=== PATIENT | male | born 1965 | race Two or more races ===

== ENCOUNTER 2024-10-15 05:35 | Day surgery (SDC) | payer MEDICAID, SELFPAY ==
--- NOTE | 2024-10-12 06:14 | EKG_ITS ---
[facility] Test Date: 2024-10-12 Pat Name: HOLLIE CHACON Department: Room: - Gender: Male Vascular Technician: YISSEL : 1965 Requested By: Álvaro Warren Order Number: [id number] Reading MD: Álvaro Warren Measurements Intervals [place] Rate: 60 P: 55 MA: 197 QRS: 14 QRSD: 130 T: 12 QT: 395 QTc: 396 Interpretive Statements SINUS RHYTHM MODERATE INTRAVENTRICULAR CONDUCTION DELAY [110+ ms QRS DURATION] No previous ECG available for comparison /store/S0/[id number]/ecg/[id number].pdf
[2024-10-12 09:46] VITALS: BMI 31.6
[2024-10-12 10:25] LABS: Collection Type, Urine Clean Catch
[2024-10-12 10:39] LABS: Basophils % (Auto) 0 % (0-2.5); Eosinophils # (Auto) 0.2 Thou/mm3 (0.0-0.5); Eosinophils % (Auto) 2 % (0-10); Hematocrit 43.4 % (41.0-53.0); Hemoglobin 15.5 g/dL (13.5-16.0); Immature Granulocytes % (Auto) 0 % (0-0); Immature Granulocytes Auto 0.01 Thou/mm3 (0.00-0.00); Lymphocytes # (Auto) 2.8 Thou/mm3 (1.0-4.8); Lymphocytes % (Auto) 43 % (10-50); Mean Corpuscular HGB Conc 35.7 g/dl (31.0-37.0); Mean Corpuscular Hemoglobin 30.7 pg (25.0-35.0); Mean Corpuscular Volume 86 fL (80-100); Monocytes # (Auto) 0.4 Thou/mm3 (0.0-0.8); Monocytes % (Auto) 6 % (0-12); Neutrophils # (Auto) 3.2 Thou/mm3 (1.8-7.7); Neutrophils % (Auto) 49 % (37-80); Nucleated Red Blood Cell % 0 /100 WBC (0); Platelet Count 243 Thou/mm3 (140-440); RDW Standard Deviation 40.1 fL (35.1-43.9); Red Blood Count 5.05 Miln/mm3 (4.50-5.90); White Blood Count 6.5 Thou/mm3 (3.8-10.6)
[2024-10-12 10:40] LABS: Bilirubin,Urine Negative (Negative); Blood,Urine Negative (Negative); Clarity,Urine Clear (Clear/Hazy); Color,Urine Yellow (Lt Yel-Yel); Glucose, Urine Negative (Negative); Ketones,Urine Negative (Negative); Leukocyte Esterase,Urine Negative (Negative); Nitrite,Urine Negative (Negative); Protein,Urine Negative (Neg - Trace); RBC,Urine 2 /hpf (0-3); Specific Gravity,Urine 1.027 (1.001-1.035); Squamous Epithelial Cell,Urine < 1 /hpf (0-5); Urobilinogen,Urine Negative mg/dL (0.0-1.0); WBC,Urine 2 /hpf (0-5)
[2024-10-12 10:53] LABS: INR 1.1 (0.9-1.3); Partial Thromboplastin Time 25.6 Seconds (22.0-36.0); Prothrombin Time 12.1 Seconds (9.0-12.2)
[2024-10-12 10:56] LABS: Alanine Aminotransferase 49 U/L (10-49); Albumin, Serum 4.4 gm/dL (3.5-5.0); Albumin/Globulin Ratio 1.5 (1.2-2.2); Alkaline Phosphatase 40 U/L (46-116); Anion Gap 8 (7-16); Aspartate Amino Transferase 36 U/L (0-34); BUN/Creatinine Ratio 19 Ratio (12-20); Bilirubin,Total 0.6 mg/dL (0.3-1.2); Blood Urea Nitrogen 21 mg/dL (9-23); Calcium 9.5 mg/dL (8.3-10.6); Calcium (Corrected) 9.5 mg/dL (8.5-10.1); Carbon Dioxide 27.8 mMol/L (20.0-31.0); Chloride 104 mMol/L (98-107); Creatinine (Component) 1.1 mg/dL (0.6-1.3); Estimated Creatinine Clearance 75.5 mL/min (>60); Glucose 85 mg/dL (74-106); Osmolality,Calculated 281 (275-295); Potassium 4.4 mMol/L (3.4-5.1); Sodium 140 mMol/L (136-145); Total Protein 7.4 gm/dL (5.7-8.2); eGFR > 60 See Note
--- NOTE | 2024-10-13 23:12 | PD.SURHP ---
HPI Date of Admission October 15, 2024 Chief Complaint Chief Complaint: Painful umbilical hernia HPI This is a 59-year-old gentleman who had umbilical hernia for long time. Lately it has gotten much bigger and is giving him pain and it is not reducible therefore he is brought to the hospital for repair of the umbilical hernia with possible implantation of a patch. The risk benefits and alternatives were discussed with the patient and informed consent is obtained. The risk includes risk of infection. There is also usual risk of anesthesia. Past Medical History Past Medical History NEUROLOGIC: Negative Neurological Disorders CARDIAC: Positive Cardiac Disorders, Hypercholesterolemia and Hypertension; Negative Congestive Heart Failure RESPIRATORY: Positive Respiratory Disorders and Sleep Apnea; Negative Chronic Obstructive Pulmonary Disease (COPD) GASTROINTESTINAL: Negative Gastrointestinal Disorders or Hepatitis GENITOURINARY: Negative Genitourinary Disorders or Renal Disease MUSCULOSKELETAL: Negative Musculoskeletal Disorders ENT: Negative History of ENT Problems ENDOCRINE: Positive Endocrine Disorders and Diabetes Mellitus Type 2; Negative Diabetes Mellitus Type 1 HEMATOLOGIC: Negative Blood Disorders OTHER HISTORY: Negative Hospitalization, Autoimmune Disease, Shingles, Blood Transfusions, Anesthesia Reactions, Chicken Pox, Measles or Cancer Family History FAMILY HISTORY: Positive Family Cardiac Disorders, Family Endocrine Disorders, Family Cancer and Family Surgery; Negative Family Anesthesia Reaction Surgical History SURGICAL: Positive Nose Surgery (Nasoplasty with turbinate resection) and Tonsillectomy Social History SMOKING STATUS: Never smoker Travel History EBOLA RISK: No Meds Home Medications and Allergies Home Medications ?Medication ?Instructions ?Recorded ?Confirmed ?Type ezetimibe 10 mg tablet (Zetia) 10 mg PO QDAY 10/12/24 10/12/24 History fenofibrate 160 mg tablet 160 mg PO QDAY 10/12/24 10/12/24 History lisinopril 20 mg tablet 20 mg PO QDAY 10/12/24 10/12/24 History omega-3 acid ethyl esters 1 gram 1 cap PO BID 10/12/24 10/12/24 History capsule (Lovaza) sitagliptin phosphate 50 1 tab PO BID 10/12/24 10/12/24 History mg-metformin 1,000 mg tablet (Janumet) Allergies Allergy/AdvReac Type Severity Reaction Status Date / Time No Known Allergies Allergy Verified 10/12/24 09:43 Exam Constitutional Constitutional: no acute distress Routine HEENT Exam Head: Present normocephalic Eye: Present EOMI and PERRL ENT: Present mucous membranes moist Routine Neck Exam Neck: Present supple and trachea midline Routine Chest/Breast/Axilla Exam Chest wall: Absent tenderness or mass Routine Respiratory Exam Respiratory: Present chest non-tender, lungs clear, normal breath sounds and no resp distress; Absent respiratory distress Routine Cardiovascular Exam Cardiovascular: Present RRR Routine Abdominal Exam Abdominal: Present soft and normoactive bowel sounds Comments: There is an umbilical hernia which is somewhat painful there is no hyperemia or edema but it is not reducible. Bowel tones are present there is no evidence of bowel obstruction. Routine Extremities Exam Extremities: Present full ROM Routine Skin Exam Skin: Present intact, dry and warm Routine Neurological Exam Neurological: Present alert, oriented X3 and CN II-XII intact Routine Psychiatric Exam Psychiatric: Present normal affect and normal thought process Assessment & Plan Problem List (1) Umbilical hernia with obstruction: Status: Acute Plan Repair of umbilical hernia with possible implantation of a patch. Risk benefits alternatives were discussed with the patient and informed consent is obtained. Quality Measures Quality Measures VTE prophylaxis
[2024-10-15] VITALS (8 sets, daily range): BP systolic 107–126; BP diastolic 64–78; PULSE 64–86; RESP 12–18; TEMP 36.3–36.6; O2SAT 95–99; BMI 31.1
[2024-10-15] MEDS: RINGERS LACTATED 1000 ML 1,000 ML 60 ML IV (06:05)
--- NOTE | 2024-10-15 07:33 | SUR.PREOP ---
Patient expressed gratitude for prayer before their procedure.
--- NOTE | 2024-10-15 08:59 | PD.SUROPNT ---
Date of Procedure 10/15/24 Pre Op Diagnosis Incarcerated umbilical hernia Post Op Diagnosis Same with incarceration of the omentum Procedure Repair of incarcerated umbilical hernia with partial omentectomy on October 15, 2024 Findings This patient has an incarcerated umbilical hernia omentum was incarcerated in it. There was no bowel. Incarcerated and scarred down omentum needed to be resected. There were no other findings. Procedure Description Patient was examined in the preop area. Site and site were marked. Procedure was discussed with the patient in detail. The risk benefits alternatives were discussed with the patient and informed consent was obtained. The risks include bleeding infection recurrence of the hernia and anesthesia related risks. The patient was brought to the operating room and placed on the operating table in supine position. General anesthesia was administered in a satisfactory manner. IV antibiotics were given to the patient. Local anesthesia 0.25% Marcaine was used as an adjunct. Curvilinear vertical circumumbilical incision is made. This was deepened through the layers of skin subcutaneous tissue. The hernia sac was identified and was dissected around the umbilicus. Hernia sac was incised circumferentially, and the contents of the hernia sac were identified. There was omentum in the hernia sac, and this was adherent with the hernia sac and it is scarred down. Portion of the omentum was resected by suture ligation technique with resection of the scarred down omentum. Rest of the omentum was reduced. Hernia sac was excised as specimen. The fascia is cleaned and then the defect is defined. I examined the fascia from the peritoneal side and there are no adhesions of the bowel or omentum. The defect measured 5 cm. It came together nicely so I decided to repair that with interrupted 0 Ethibond [id number] stitches. This repair was closed the defect horizontally. Multiple aqehle-[id number] stitches are taken to complete the repair. Hemostasis was achieved and the defect was checked again and there is no fascial defect anymore. The operative field is thoroughly irrigated with saline solution. The hernia sac toward the umbilical skin is trimmed. Umbilical skin is attached to the fascia with interrupted 3-0 Vicryl stitches so as to avoid floating umbilicus. After that subcutaneous tissue was approximated by 3-0 Vicryl and skin by four 4-0 Monocryl subcuticular stitches. Steri-Strips are applied. Sterile dressing is applied. Patient tolerated the procedure very well. Complications none. Anesthesia GETA Drains None. Implants None. Pathology / specimen Other (Umbilical hernia sac and portion of omentum) Estimated Blood Loss 2 Condition Stable Disposition PACU Surgeon Álvaro Warren MD Surgical Staff Operation Date: 10/15/24 07:30 Case Staff Anesthesiologist: Keith Leblanc RNpayment specialist: Loni Johnson surgical services director Natanael MCNEAL buyer internship traveler Shwetha MCNEAL buyer internship in processing
--- NOTE | 2024-10-15 09:04 | SUR.PHASEI ---
pt arrived to PACU via gurney with oral airway present, breathing unlabored, dressing to abdomen clean, dry, and intact, report from Shwetha MCNEAL, Reyes MCNEAL, and Dr Leblanc
[2024-10-15] MEDS: KETOROLAC INJ 30 MG/ML VIAL IVP (09:40)
--- NOTE | 2024-10-15 10:14 | SUR.PHASEII ---
pt awake, alert, able to follow commands, breathing unlabored, dressing to abdomen clean, dry, and intact, discharge instructions given with daughter present using telephone range operator Deborah SALDIVAR, all questions answered and pt and daughter verbalize understanding of discharge instructions, pt discharged via wheelchair with all belongings and copies of discharge paperwork
== END 2024-10-15 10:14 | disposition home or self-care (01) ==
PROVIDERS: PCP Family Medicine; Referring Provider Specialist; Visit Provider Specialist
PROC: (CPT 49592; principal; 2024-10-15 07:30)
DX: K42.0 Umbilical hernia with obstruction, without gangrene (principal); I10 Essential (primary) hypertension; G47.30 Sleep apnea, unspecified; E78.00 Pure hypercholesterolemia, unspecified; E11.9 Type 2 diabetes mellitus without complications
CPT/HCPCS: 49592; 36415; 80053; 81001; 85025; 85610; 85730; 93005; A4217; A4649; J0690; J1100; J1580; J1885; J2371; J2405; J2704; J2710; J3010; J3490; J7120; A9270; J1596; J1805